=== PATIENT | male | born 1945 | race Native Hawaiian/Other Pacific Islander ===

== ENCOUNTER 2021-02-09 17:51 | Outpatient (CLI) | payer OTHER, MEDICARE | END 2021-02-09 21:34 | disposition home or self-care (01) | LOC: LAB 17:51 | PROVIDERS: ATTEND Family Medicine | DX: N39.0 Urinary tract infection, site not specified (principal) | CPT/HCPCS: 81000 ==

== ENCOUNTER 2021-10-19 09:16 | Outpatient (CLI) | payer OTHER, MEDICARE ==
[2021-10-19 09:36] LABS: PLATELET COUNT 135 K/uL (142-355)
[2021-10-19 10:01] LABS: POTASSIUM 4.1 mmol/L (3.6-5.2)
== END 2021-10-19 19:03 | disposition home or self-care (01) ==
LOC: LABW 09:16
PROVIDERS: ATTEND Internal Medicine Nephrology
DX: N18.4 Chronic kidney disease, stage 4 (severe) (principal); C79.00 Secondary malignant neoplasm of unspecified kidney and renal pelvis; N25.81 Secondary hyperparathyroidism of renal origin; I12.9 Hypertensive chronic kidney disease with stage 1 through stage 4 chronic kidney disease, or unspecified chronic kidney disease; D64.9 Anemia, unspecified; E55.9 Vitamin D deficiency, unspecified; R82.90 Unspecified abnormal findings in urine
CPT/HCPCS: 36415; 80053; 81000; 82306; 82607; 82728; 82746; 83540; 83550; 83970; 84100; 85027; 85044; 87088

== ENCOUNTER 2022-05-12 13:21 | Outpatient (CLI) | payer OTHER, MEDICARE | END 2022-05-12 19:35 | disposition home or self-care (01) | LOC: US 13:21 | PROVIDERS: ATTEND Internal Medicine Hematology & Oncology | DX: C64.9 Malignant neoplasm of unspecified kidney, except renal pelvis (principal) ==